=== PATIENT | female | born 1945 | race Caucasian/White ===

== ENCOUNTER 2017-11-19 21:37 | Emergency (ER) | payer MEDICARE, OTHER ==
[~2017-11-19] VITALS: Ht 157.5 cm; Wt 51.7 kg
[~2017-11-19 21:37] MED LIST: ALBU90OI; ALBU90OI INH; ATOR10; AZIT250 PO; BUDESONIDE EC3 MG PO; BUPR75; BUPR75 PO; CETI10 PO; CETI5 PO; CLOB.05TC TOP; CONEST.625; DAIRY DIGES9000 UNI1; ERYT1OIN; ESTR2 PO; Estradiol1 MG PO; FLUSAL2505; FLUSAL2505 IH; FLUSAL2505 INH; GUAI600T33 PO; HYDACE5 PO; IPRAOI; Imuran50 MG PO; LEVFLO500 PO; LEVSOD100; LEVSOD100 PO; LIQUID B-11000 MCG/1 SL; LORA1SY; MESA250ER PO; METF500; METF500 PO; MONT10T; PIOG15 PO; PRED10 PO; PRED20 PO; Prednisone20 MG PO; RANI150; SACC250C PO; SIMV10 PO; SULTRIDS PO; SYNTHROID112 MCG PO; Simvastatin20 MG PO; TIOT18; TIOT18 IH; TOBR.3OPSO OP; TRIA80TC; TUMS300 MG; VALACYCLOVIR500 MG; VICODIN 5-3001 EACH PO; VIROPTIC; Ventolin Soln3 ML; ZYRTEC10 M1 PO; [UNRECOGNIZED DRUG - CODE]
[2017-11-19 22:10] LABS: BASOPHILS ABSOLUTE AUTO 0.02 K/mm3 (0.00-0.23); BASOPHILS PERCENT AUTO 0 % (0-2); EOSINOPHILS ABSOLUTE AUTO 0.05 K/mm3 (0.00-0.68); EOSINOPHILS PERCENT AUTO 1 % (0-6); Hematocrit 37.9 % (33.0-51.0); Hemoglobin 12.6 g/dL (11.5-16.0); IMMATURE GRAN ABSOLUTE AUTO 0.01 K/mm3 (0.00-0.10); IMMATURE GRAN PERCENT AUTO 0 % (0-1); LYMPHOCYTES PERCENT AUTO 24 % (21-46); MONOCYTES ABSOLUTE AUTO 0.59 K/mm3 (0.16-1.47); MONOCYTES PERCENT AUTO 11 % (4-13); Mean Corpuscular HGB 34.5 pg (26.0-34.0); Mean Corpuscular HGB Conc 33.2 g/dL (31.5-36.5); Mean Corpuscular Volume 104 fL (80-100); Mean Platelet Volume 9.5 fL (9.1-12.4); NEUTROPHILS ABSOLUTE AUTO 3.55 K/mm3 (1.96-9.15); NEUTROPHILS PERCENT AUTO 64 % (41-73); Platelet Count 192 K/mm3 (150-400); RDW Standard Deviation 53.8 fL (35.1-46.3); Red Blood Cell Count 3.65 M/mm3 (3.80-5.20); White Blood Cell Count 5.52 K/mm3 (4.00-11.30)
[2017-11-19 22:29] LABS: Alanine Aminotransfer (ALT/SGP 30 U/L (12-78); Albumin, Blood 3.8 g/dL (3.4-5.0); Albumin/Globulin Ratio 1.2 (0.8-1.8); Alk Phos 118 U/L (50-136); Anion Gap 8 mmol/L (6-16); Aspartate Aminotrans (AST/SGOT 23 U/L (12-37); Bilirubin, Total 0.2 mg/dL (0.1-1.0); Blood Urea Nitrogen 7 mg/dL (8-24); Bun/Creatinine Ratio 10.3 (12.0-20.0); CO2, Blood 26 mmol/L (21-32); Chloride, Blood 111 mmol/L (98-108); Creatinine, Blood 0.68 mg/dL (0.40-1.00); Globulin, Blood 3.1 g/dL (2.2-4.0); Glomerular Filtration Rate >60 (60-); Glucose, Blood 123 mg/dL (70-99); Potassium, Blood 3.6 mmol/L (3.5-5.5); Sodium, Blood 145 mmol/L (136-145); Total Protein, Blood 6.9 g/dL (6.4-8.2); Troponin I <0.015 ng/mL (0.000-0.040)
[2017-11-19] MEDS ORDERED: Prednisone20 MG PO (23:24)
[2017-11-19] MEDS ORDERED: ALBU2.5V5 NEB (23:27)
[2017-11-19] MEDS ORDERED: Zithromax250 MG PO (23:39)
== END 2017-11-19 23:56 | disposition home or self-care (01) ==
LOC: ER 21:37
PROVIDERS: Emergency Medicine
DX: J44.1 Chronic obstructive pulmonary disease with (acute) exacerbation (principal); Z88.8 Allergy status to other drugs, medicaments and biological substances; Z79.899 Other long term (current) drug therapy; Z79.84 Long term (current) use of oral hypoglycemic drugs; Z79.2 Long term (current) use of antibiotics; J45.901 Unspecified asthma with (acute) exacerbation; F17.200 Nicotine dependence, unspecified, uncomplicated
CPT/HCPCS: 36415; 71046; 80053; 83880; 84484; 85025; 93005; 93010; 94640; 94644; 96361; 96374; 99283; J2930; J7030

== ENCOUNTER → 2018-01-12 | Outpatient (CLI) | payer MEDICARE, OTHER ==
[~2018-01-12] MED LIST changes: +ALBU2.5V5 NEB; +Zithromax250 MG PO
== END | disposition home or self-care (01) ==
LOC: OLS 05:00 → LAB SHORT 05:00
DX: R05 Cough (principal)
CPT/HCPCS: 87015; 87116; 87206

== ENCOUNTER 2018-11-23 07:45 | Emergency (ER) | payer MEDICARE, OTHER ==
[~2018-11-23] VITALS: Ht 157.5 cm; Wt 51.7 kg
[2018-11-23] MEDS ORDERED: CHOL10002 (08:09)
[2018-11-23] MEDS ORDERED: BUPR150T2 PO (08:09)
[2018-11-23] MEDS ORDERED: PYRI100 (08:09)
[2018-11-23] MEDS ORDERED: CYAN500 (08:10)
[2018-11-23] MEDS ORDERED: Zocor20 MG PO (08:10)
[2018-11-23] MEDS ORDERED: VALA500 PO (08:10)
[2018-11-23] MEDS ORDERED: MONT10T PO (08:11)
[2018-11-23] MEDS ORDERED: LEVO-T100 MCG PO (08:11)
[2018-11-23] MEDS ORDERED: AZAT50 PO (08:11)
[2018-11-23] MEDS ORDERED: METF500 PO (08:11)
[2018-11-23] MEDS ORDERED: ALBU2.5V5 (08:12)
[2018-11-23] MEDS ORDERED: TIOT18 (08:12)
[2018-11-23] MEDS ORDERED: FLUT1DIS5 (08:12)
[2018-11-23] MEDS ORDERED: ALBU90OI6 (08:12)
[2018-11-23 08:32] LABS: BASOPHILS ABSOLUTE AUTO 0.02 K/mm3 (0.00-0.23); BASOPHILS PERCENT AUTO 0 % (0-2); EOSINOPHILS ABSOLUTE AUTO 0.17 K/mm3 (0.00-0.68); EOSINOPHILS PERCENT AUTO 3 % (0-6); Hematocrit 41.2 % (33.0-51.0); Hemoglobin 13.5 g/dL (11.5-16.0); IMMATURE GRAN ABSOLUTE AUTO 0.01 K/mm3 (0.00-0.10); IMMATURE GRAN PERCENT AUTO 0 % (0-1); LYMPHOCYTES ABSOLUTE AUTO 1.66 K/mm3 (0.84-5.20); LYMPHOCYTES PERCENT AUTO 28 % (21-46); MONOCYTES PERCENT AUTO 8 % (4-13); Mean Corpuscular HGB 34.8 pg (26.0-34.0); Mean Corpuscular HGB Conc 32.8 g/dL (31.5-36.5); Mean Corpuscular Volume 106 fL (80-100); Mean Platelet Volume 9.7 fL (9.1-12.4); NEUTROPHILS ABSOLUTE AUTO 3.62 K/mm3 (1.96-9.15); NEUTROPHILS PERCENT AUTO 61 % (41-73); Platelet Count 209 K/mm3 (150-400); RDW Coefficient Variation 14.5 % (11.7-14.2); RDW Standard Deviation 56.7 fL (35.1-46.3); Red Blood Cell Count 3.88 M/mm3 (3.80-5.20); White Blood Cell Count 5.98 K/mm3 (4.00-11.30)
[2018-11-23 08:59] LABS: Alanine Aminotransfer (ALT/SGP 32 U/L (12-78); Albumin, Blood 3.9 g/dL (3.4-5.0); Albumin/Globulin Ratio 1.3 (0.8-1.8); Alk Phos 87 U/L (50-136); Anion Gap 8 mmol/L (6-16); Aspartate Aminotrans (AST/SGOT 26 U/L (12-37); Bilirubin, Total 0.5 mg/dL (0.1-1.0); Blood Urea Nitrogen 9 mg/dL (8-24); Bun/Creatinine Ratio 11.8 (12.0-20.0); CO2, Blood 27 mmol/L (21-32); Calcium, Blood 9.1 mg/dL (8.5-10.1); Chloride, Blood 107 mmol/L (98-108); Creatinine, Blood 0.77 mg/dL (0.40-1.00); Glomerular Filtration Rate >60 (60-); Glucose, Blood 141 mg/dL (70-99); Sodium, Blood 142 mmol/L (136-145); Total Protein, Blood 6.9 g/dL (6.4-8.2); Troponin I <0.015 ng/mL (0.000-0.040)
[2018-11-23] MEDS ORDERED: Prednisone10 MG PO (12:08)
[2018-11-23] MEDS ORDERED: PRED20 PO (12:08)
== END 2018-11-23 12:47 | disposition home or self-care (01) ==
LOC: ER 07:45
PROVIDERS: Emergency Medicine
DX: J44.1 Chronic obstructive pulmonary disease with (acute) exacerbation (principal); Z88.8 Allergy status to other drugs, medicaments and biological substances; Z79.899 Other long term (current) drug therapy; Z79.84 Long term (current) use of oral hypoglycemic drugs; F17.200 Nicotine dependence, unspecified, uncomplicated
CPT/HCPCS: 36415; 71046; 80053; 84484; 85025; 93005; 93010; 94640; 96374; 99285-25; J2930

== ENCOUNTER → 2019-03-21 | Outpatient (CLI) | payer MEDICARE, OTHER ==
[~2019-03-21] MED LIST changes: +ALBU2.5V5; +ALBU90OI6; +AZAT50 PO; +BUPR150T2 PO; +CHOL10002; +CYAN500; +FLUT1DIS5; +LEVO-T100 MCG PO; +MONT10T PO; +ONDA4ODT MM; +PENVK500 PO; +PYRI100; +Percocet 5-3251 EACH PO; +Prednisone10 MG PO; +TYLECOD3 PO; +VALA500 PO; +Zocor20 MG PO
== END | disposition home or self-care (01) ==
LOC: LAB EV 07:45 → LAB SHORT 07:45
DX: J44.1 Chronic obstructive pulmonary disease with (acute) exacerbation (principal)
CPT/HCPCS: 87070; 87205

== ENCOUNTER 2019-05-04 20:04 | Emergency (ER) | payer MEDICARE, OTHER ==
[~2019-05-04] VITALS: Ht 157.5 cm; Wt 54.4 kg
[~2019-05-04 20:04] MED LIST changes: -ONDA4ODT MM; -PENVK500 PO; -Percocet 5-3251 EACH PO; -TYLECOD3 PO
[2019-05-04] MEDS ORDERED: PENVK500 PO (20:52)
[2019-05-04] MEDS ORDERED: TYLECOD3 PO (20:55)
[2019-05-04 21:11] LABS: BASOPHILS ABSOLUTE AUTO 0.04 K/mm3 (0.00-0.23); BASOPHILS PERCENT AUTO 1 % (0-2); EOSINOPHILS ABSOLUTE AUTO 0.15 K/mm3 (0.00-0.68); EOSINOPHILS PERCENT AUTO 2 % (0-6); Hematocrit 40.3 % (33.0-51.0); Hemoglobin 13.4 g/dL (11.5-16.0); IMMATURE GRAN ABSOLUTE AUTO 0.03 K/mm3 (0.00-0.10); IMMATURE GRAN PERCENT AUTO 0 % (0-1); LYMPHOCYTES ABSOLUTE AUTO 1.23 K/mm3 (0.84-5.20); LYMPHOCYTES PERCENT AUTO 18 % (21-46); MONOCYTES ABSOLUTE AUTO 0.68 K/mm3 (0.16-1.47); MONOCYTES PERCENT AUTO 10 % (4-13); Mean Corpuscular HGB Conc 33.3 g/dL (31.5-36.5); Mean Corpuscular Volume 102 fL (80-100); Mean Platelet Volume 9.9 fL (9.1-12.4); NEUTROPHILS ABSOLUTE AUTO 4.72 K/mm3 (1.96-9.15); NEUTROPHILS PERCENT AUTO 69 % (41-73); Platelet Count 265 K/mm3 (150-400); RDW Coefficient Variation 13.2 % (11.7-14.2); RDW Standard Deviation 49.9 fL (35.1-46.3); Red Blood Cell Count 3.94 M/mm3 (3.80-5.20); White Blood Cell Count 6.85 K/mm3 (4.00-11.30)
[2019-05-04 21:30] LABS: Alanine Aminotransfer (ALT/SGP 23 U/L (12-78); Albumin, Blood 3.2 g/dL (3.4-5.0); Albumin/Globulin Ratio 0.9 (0.8-1.8); Alk Phos 89 U/L (50-136); Anion Gap 9 mmol/L (6-16); Aspartate Aminotrans (AST/SGOT 20 U/L (12-37); Bilirubin, Total 0.2 mg/dL (0.1-1.0); Blood Urea Nitrogen 10 mg/dL (8-24); Bun/Creatinine Ratio 13.6 (12.0-20.0); CO2, Blood 27 mmol/L (21-32); Calcium, Blood 8.7 mg/dL (8.5-10.1); Chloride, Blood 103 mmol/L (98-108); Creatinine, Blood 0.73 mg/dL (0.40-1.00); Globulin, Blood 3.5 g/dL (2.2-4.0); Glomerular Filtration Rate >60 (60-); Glucose, Blood 123 mg/dL (70-99); Potassium, Blood 3.8 mmol/L (3.5-5.5); Sodium, Blood 139 mmol/L (136-145); Total Protein, Blood 6.7 g/dL (6.4-8.2); Troponin I <0.015 ng/mL (0.000-0.040)
[2019-05-04] MEDS ORDERED: Percocet 5-3251 EACH PO (22:18)
[2019-05-04] MEDS ORDERED: ONDA4ODT MM (22:19)
== END 2019-05-04 23:01 | disposition home or self-care (01) ==
LOC: ER 20:04
PROVIDERS: Physician Assistant
DX: R51 Headache (principal); Z88.8 Allergy status to other drugs, medicaments and biological substances; Z79.899 Other long term (current) drug therapy; Z79.84 Long term (current) use of oral hypoglycemic drugs; J44.9 Chronic obstructive pulmonary disease, unspecified; F17.200 Nicotine dependence, unspecified, uncomplicated
CPT/HCPCS: 36415; 70450; 71046; 80053; 84484; 85025; 93005; 93010; 96374; 96375; 99284-25; A9270; A9270-GY; J1885; J2405; J3010

== ENCOUNTER 2019-09-08 13:26 | Inpatient (IN) | payer MEDICARE, OTHER ==
[~2019-09-08] VITALS: Ht 157.5 cm; Wt 57.7 kg
[~2019-09-08 13:26] MED LIST changes: -ALBU90OI6; -AZAT50 PO; -BUPR150T2 PO; -CHOL10002; -CYAN500; -FLUT1DIS5; -LEVO-T100 MCG PO; -MONT10T PO; +ONDA4ODT MM; +PENVK500 PO; -PYRI100; +Percocet 5-3251 EACH PO; +TYLECOD3 PO; -VALA500 PO; -Zocor20 MG PO
[2019-09-08 13:55] LABS: Base Excess Venous 1.7 mmol/L; Bicarbonate Venous 25.3 mmol/L (24.0-30.0); PCO2 Venous 43.5 mmHg (38-42); PO2 Venous 55.9 mmHg (38-42); pH Blood Venous 7.39 (7.34-7.37)
[2019-09-08 14:00] LABS: BASOPHILS ABSOLUTE AUTO 0.01 K/mm3 (0.00-0.23); BASOPHILS PERCENT AUTO 0 % (0-2); EOSINOPHILS ABSOLUTE AUTO 0.01 K/mm3 (0.00-0.68); EOSINOPHILS PERCENT AUTO 0 % (0-6); Hematocrit 43.5 % (33.0-51.0); Hemoglobin 14.5 g/dL (11.5-16.0); IMMATURE GRAN ABSOLUTE AUTO 0.07 K/mm3 (0.00-0.10); IMMATURE GRAN PERCENT AUTO 1 % (0-1); LYMPHOCYTES ABSOLUTE AUTO 0.83 K/mm3 (0.84-5.20); LYMPHOCYTES PERCENT AUTO 10 % (21-46); MONOCYTES PERCENT AUTO 7 % (4-13); Mean Corpuscular HGB 34.6 pg (26.0-34.0); Mean Corpuscular HGB Conc 33.3 g/dL (31.5-36.5); Mean Corpuscular Volume 104 fL (80-100); NEUTROPHILS ABSOLUTE AUTO 7.15 K/mm3 (1.96-9.15); NEUTROPHILS PERCENT AUTO 83 % (41-73); Platelet Count 217 K/mm3 (150-400); RDW Coefficient Variation 14.5 % (11.7-14.2); RDW Standard Deviation 55.5 fL (35.1-46.3); Red Blood Cell Count 4.19 M/mm3 (3.80-5.20); White Blood Cell Count 8.67 K/mm3 (4.00-11.30)
[2019-09-08 14:23] LABS: Alanine Aminotransfer (ALT/SGP 34 U/L (12-78); Albumin, Blood 4.1 g/dL (3.4-5.0); Albumin/Globulin Ratio 1.2 (0.8-1.8); Alk Phos 102 U/L (50-136); Anion Gap 8 mmol/L (6-16); Aspartate Aminotrans (AST/SGOT 29 U/L (12-37); Bilirubin, Total 0.4 mg/dL (0.1-1.0); Blood Urea Nitrogen 10 mg/dL (8-24); Bun/Creatinine Ratio 14.8 (12.0-20.0); CO2, Blood 25 mmol/L (21-32); Calcium, Blood 9.2 mg/dL (8.5-10.1); Chloride, Blood 109 mmol/L (98-108); Creatinine, Blood 0.68 mg/dL (0.40-1.00); Globulin, Blood 3.5 g/dL (2.2-4.0); Glomerular Filtration Rate >60 (60-); Glucose, Blood 146 mg/dL (70-99); Potassium, Blood 4.1 mmol/L (3.5-5.5); Sodium, Blood 142 mmol/L (136-145); Total Protein, Blood 7.6 g/dL (6.4-8.2); Troponin I <0.015 ng/mL (0.000-0.040)
[2019-09-08] MEDS ORDERED: Duoneb 2.5-0.5 M3 ML INH (16:20)
[2019-09-08] MEDS ORDERED: AZITHROMYCIN250 MG PO (16:21)
[2019-09-08] MEDS ORDERED: LEVSOD100 PO (16:22)
[2019-09-08] MEDS ORDERED: AZAT50 PO (16:22)
[2019-09-08] MEDS ORDERED: PREDNISONE5 MG PO (16:23)
[2019-09-08] MEDS ORDERED: FLUT1DIS5 INH (16:24)
[2019-09-08] MEDS ORDERED: VALA500 PO (16:24)
[2019-09-08] MEDS ORDERED: BUPROPION XL150 M1 PO (16:25)
[2019-09-08] MEDS ORDERED: POTASSIUM CHLO10 MEQ PO (16:27)
[2019-09-08] MEDS ORDERED: SIMV10 PO (16:27)
[2019-09-08] MEDS ORDERED: ALBU90OI INH (16:29)
[2019-09-08] MEDS ORDERED: METFORMIN HCL500 M2 PO (16:29)
[2019-09-08] MEDS ORDERED: FAMO20 PO (16:31)
[2019-09-08] MEDS ORDERED: TIOT18 INH (18:34)
[2019-09-08] MEDS ORDERED: Vitamin B-650 MG PO (18:36)
[2019-09-08] MEDS ORDERED: VITAMIN D325 MCG PO (18:36)
[2019-09-08] MEDS ORDERED: [UNRECOGNIZED DRUG - CODE] SL (18:38)
[2019-09-08] MEDS ORDERED: MONT10T PO (18:38)
[2019-09-09 01:47] LABS: Adenovirus Not Detected (NOT DETECT); Bordetella pertussis Not Detected (NOT DETECT); Chlamydophila pneumoniae Not Detected (NOT DETECT); Coronavirus 229E Not Detected (NOT DETECT); Coronavirus HKU1 Not Detected (NOT DETECT); Coronavirus NL63 Not Detected (NOT DETECT); Coronavirus OC43 Not Detected (NOT DETECT); Human Metapneumovirus Not Detected (NOT DETECT); Human Rhinovirus/Enterovirus Not Detected (NOT DETECT); Influenza A Not Detected (NOT DETECT); Influenza A/2009-H1 Not Detected (NOT DETECT); Influenza A/H1 Not Detected (NOT DETECT); Influenza A/H3 Not Detected (NOT DETECT); Influenza B Not Detected (NOT DETECT); Mycoplasma pneumoniae Not Detected (NOT DETECT); Parainfluenza Virus 1 Not Detected (NOT DETECT); Parainfluenza Virus 2 Not Detected (NOT DETECT); Parainfluenza Virus 3 Not Detected (NOT DETECT); Parainfluenza Virus 4 Not Detected (NOT DETECT); Respiratory Syncytial Virus Not Detected (NOT DETECT)
[2019-09-09 04:26] LABS: BASOPHILS ABSOLUTE AUTO 0.01 K/mm3 (0.00-0.23); BASOPHILS PERCENT AUTO 0 % (0-2); EOSINOPHILS PERCENT AUTO 0 % (0-6); Hematocrit 41.3 % (33.0-51.0); Hemoglobin 13.7 g/dL (11.5-16.0); IMMATURE GRAN ABSOLUTE AUTO 0.04 K/mm3 (0.00-0.10); IMMATURE GRAN PERCENT AUTO 0 % (0-1); LYMPHOCYTES ABSOLUTE AUTO 0.63 K/mm3 (0.84-5.20); LYMPHOCYTES PERCENT AUTO 6 % (21-46); MONOCYTES ABSOLUTE AUTO 0.23 K/mm3 (0.16-1.47); MONOCYTES PERCENT AUTO 2 % (4-13); Mean Corpuscular HGB 34.1 pg (26.0-34.0); Mean Corpuscular HGB Conc 33.2 g/dL (31.5-36.5); Mean Corpuscular Volume 103 fL (80-100); Mean Platelet Volume 10.2 fL (9.1-12.4); NEUTROPHILS ABSOLUTE AUTO 9.43 K/mm3 (1.96-9.15); NEUTROPHILS PERCENT AUTO 91 % (41-73); Platelet Count 211 K/mm3 (150-400); RDW Coefficient Variation 14.6 % (11.7-14.2); RDW Standard Deviation 55.3 fL (35.1-46.3); Red Blood Cell Count 4.02 M/mm3 (3.80-5.20); White Blood Cell Count 10.34 K/mm3 (4.00-11.30)
[2019-09-09 04:45] LABS: Alanine Aminotransfer (ALT/SGP 34 U/L (12-78); Albumin, Blood 3.7 g/dL (3.4-5.0); Albumin/Globulin Ratio 1.1 (0.8-1.8); Alk Phos 75 U/L (50-136); Anion Gap 5 mmol/L (6-16); Aspartate Aminotrans (AST/SGOT 21 U/L (12-37); Bilirubin, Total 0.6 mg/dL (0.1-1.0); Blood Urea Nitrogen 16 mg/dL (8-24); Bun/Creatinine Ratio 24.7 (12.0-20.0); CO2, Blood 29 mmol/L (21-32); Calcium, Blood 8.9 mg/dL (8.5-10.1); Chloride, Blood 107 mmol/L (98-108); Creatinine, Blood 0.65 mg/dL (0.40-1.00); Globulin, Blood 3.3 g/dL (2.2-4.0); Glomerular Filtration Rate >60 (60-); Glucose, Blood 195 mg/dL (70-99); Potassium, Blood 4.1 mmol/L (3.5-5.5); Sodium, Blood 141 mmol/L (136-145)
--- NOTE | 2019-09-09 06:48 | NUR ---
SHIFT SUMMARY PT ARRIVED FROM ER APPROXIMATELY 2141; A&O; FAMILY AT BEDSIDE; TRANSFERED SELF TO BED; RT AT BEDSIDE FOR BIPAP ADJUSTMENTS; VSS; O2 SATS >93 ON 4L NC; COARSE LUNG SOUNDS W/ WHEEZES NOTED; PT KEPT BIPAP IN PLACE A FEW HOURS AND SLEPT WELL; ATIVAN GIVEN 2X IN SHIFT; PT STATED IT HELPED; REFER TO EMAR; HOT COFFEE BROUGHT TO PT THIS AM; DENIES OTHER NEEDS; CALL LIGHT IN REACH; BED IN LOWEST POSITION; WILL CONTINUE TO MONITOR UNTIL HAND OFF TO DAY SHIFT RN.
--- NOTE | 2019-09-09 08:10 | NUR ---
AM NOTE... ASSUMED CARE OF PT APROX 0700. PT IS A&Ox4 AND SBA IN THE ROOM. PT WAS ON 4L NC WITH BIPAP FOR RESCUE. PT WAS TITRATED DOWN TO 3L AND HAS TOLERATED THIS WELL. PT IS NORMALLY ON RA AT HOME. RR 18-24 EVEN BUT SLIGHTLY LABORED. PT'S VS STABLE AT THIS TIME. SR/ST 90'S-100'S PER CURVE SAW OPERATOR. NO EDEMA IS NOTED ON ASSESSMENT. L/S COARSE W/EXP WHEEZES T/O. BT PRESENT AND HYPOACTIVE ABD IS SOFT AND NONTENDER TO PALP. CALL LIGHT IN REACH WILL CONTINUE TO MONITOR.
--- NOTE | 2019-09-09 09:41 | NUR ---
Met with pt this morning for med pass, pt agreed for nursing professor to work dain piña
--- NOTE | 2019-09-09 18:28 | NUR ---
SHIFT SUMMARY... NO ACUTE NEGATIVE CHANGES NOTED THIS SHIFT. PT HAS BEEN TITRATED FROM 4L NC TO 2L NC WITH O2 SATS AT 91-93%. PT IS SBA IN THE ROOM. PT'S VS HAVE BEEN STABLE T/O SHIFT. PT DENIES ANY CHEST PAIN PRESSURE N/V OR SOB. PT HAS HAD FAMILY AT THE BEDSIDE MOST OF THE SHIFT. PT HAS BEEN UP TO [place] [facility] [place]. CALL LIGHT IN REACH WILL CONTINUE TO MONITOR UNTIL REPORT IS GIVEN TO ONCOMING RN.
--- NOTE | 2019-09-10 06:34 | NUR ---
SHIFT SUMMARY PT A&O; SLEPT SEVERAL HOURS IN THE NIGHT; DENIES CHEST PAIN; VSS; O2 SATS >92 ON 2L NC; WHEN PT AWOKE THIS AM HAD A HARSH COUGHING SPELL; O2 TURNED UP FOR SATURATION; FAN BROUGHT TO PT; PT RECOVERED AFTER SEVERAL MINUTES; RT NOTIFIED OF PT REQUEST OF BREATHING TX. COFFEE BROUGHT TO PT TO SOOTHE; BSC CLOSE TO BEDSIDE; DENIES OTHER NEEDS AT THIS TIME; CALL LIGHT IN REACH; BED IN LOWEST POSITION; WILL CONTINUE TO MONITOR UNTIL HAND OFF TO DAY SHIFT RN.
--- NOTE | 2019-09-10 07:49 | NUR ---
AM NOTE... ASSUMED CARE OF PT APROX 0700. PT IS A&Ox4 AND WAS ADMITTED FOR RESP FAILURE. PT IS CURRENTLY ON 2L NC AND WILL CONTINUE TO TITRATE TO RA ASTOL. PT'S VS STABLE AT THIS TIME. PT DENIES CHEST PAIN OR INCREASED SOB BUT STILL BECOMES DYSPNIC WITH ACTIVITY. L/S EXP WHEEZES HEARD T/O DIM IN THE BASES. NO EDEMA NOTED ON ASSESSMENT. BT PRESENT AND NORMOACTIVE. CALL LIGHT IN REACH, WILL CONTINUE TO MONITOR.
[2019-09-10 09:48] LABS: PCO2 Arterial 36.2 mmHg (35-45); PO2 Arterial 69.7 mmHg (80-100); pH Blood Arterial 7.45 (7.35-7.45)
--- NOTE | 2019-09-10 13:43 | NUR ---
PT TRANSFERED. PT TRANSFERED AT 1300. PT ORIENTED TO ROOM & UNIT BY AIDE. RESPIRATORY CALLED FOR BREATHING TREATMENT. WILL CONTINUE TO MONITOR.
--- NOTE | 2019-09-10 16:44 | NUR ---
SHIFT SUMMARY PT SATING IN THE 90S ON 2L O2 VIA NC. PT TRANSFERING TO BEDSIDE COMMODE INDEPENDENTLY. NO OTHER CHANGES IN ASSESSMENT AT THIS TIME. VSS. WILL CONTINUE TO MONITOR UNTIL TURNOVER IS COMPLETE.
--- NOTE | 2019-09-10 18:36 | NUR ---
HEARTBURN PT C/O HEARTBURN. DR SINGLETON NOTIFIED. HOME PEPCID DOSE ORDERED AND TO START NOW.
[2019-09-11 05:23] LABS: Albumin, Blood 3.3 g/dL (3.4-5.0); Anion Gap 6 mmol/L (6-16); Blood Urea Nitrogen 21 mg/dL (8-24); Bun/Creatinine Ratio 28.2 (12.0-20.0); CO2, Blood 28 mmol/L (21-32); Calcium, Blood 8.5 mg/dL (8.5-10.1); Chloride, Blood 107 mmol/L (98-108); Creatinine, Blood 0.74 mg/dL (0.40-1.00); Glomerular Filtration Rate >60 (60-); Glucose, Blood 240 mg/dL (70-99); Phosphorus, Blood 2.7 mg/dL (2.5-4.9); Sodium, Blood 141 mmol/L (136-145)
--- NOTE | 2019-09-11 06:04 | NUR ---
SHIFT SUMMARY PT VERY ANXIOUS AT SHIFT CHANGE. IMMEDIATELY FOLLOWING EATING DINNER. POSSIBILITY THAT PT ASPIRATED AT DINNER. PT STATES THAT SOMETIMES SHE COUGHS WHILE SHE IS SWALLOWING WHICH CAUSES HER TO SWALLOW INAPPROPRIATELY. PT WAS ON 3 L O2 NC MOST OF THE DAY. AFTER DINNER PT BECAME MORE SOB. PT ALSO HAD A FAMILY MEMBER AT BEDSIDE THAT APPEARED TO BE MAKING THE PT EVEN MORE ANXIOUS. ATIVAN GIVEN BY DAY RN. BREATHING TX GIVEN AND PT PLACED ON BIPAP W/ 5 L BLEEDIN. PT REMAINED ON BIPAP FOR SEVERAL HOURS. EVENTUALLY PT DID FEEL IF SHE NO LONGER NEEDED BIPAP AT THIS TIME. PT THEN PLACED ON 4 L O2 NC AND TITRATED DOWN THROUGHOUT THE NIGHT. CURRENTLY ON 2.5 L WITH O2 SATS IN THE MID 90'S. PT DOES GET VERY SHORT OF BREATH WITH EXERTION BUT MANAGES GETTING TO THE BSC WELL. PLEASANT AND COOPERATIVE THIS EVENING. LUNG SOUNDS COARSE WITH SOME INTERMITTENT WHEEZING. HACKING MOSTLY NON PRODUCTIVE COUGH. TESSALON PEARLS GIVEN X 1. PT SLEPT OFF AND ON THROUGHOUT THE NIGHT. NO COMPLAINTS OF PAIN. VITAL SIGNS STABLE. WILL CONTINUE TO MONITOR.
--- NOTE | 2019-09-11 17:11 | NUR ---
SHIFT SUMMARY PT AXO X4, PLEASANT AND COOPERATIVE WITH CARE. 92% ON 3L VIA NC. PT COMPLAINS OF COUGH AND ANXIETY, MEDICATED PER EMAR. IV PATENT AND SALINE LOCKED. PHYSICAL THERAPY EVALUATED, SEE NOTE. VSS. NO ACUTE CHANGED THIS SHIFT. BED IN LOW POSITION, CALL LIGHT WITHIN REACH. PT UP INDEPENDENTLY TO BSC WHICH IS IMMEDIATELY AT BEDSIDE. PT DENIES PAIN.
--- NOTE | 2019-09-12 04:28 | NUR ---
SHIFT SUMMARY PT HAD UNEVENTFUL NIGHT. SLEPT WELL. LUNG SOUNDS CONTINUE TO BE COARSE THROUGHOUT WITH MINIMAL INTERMITTENT WHEEZING. TITRATED PT'S O2 DOWN TO 2 L NC WITH O2 SATS REMAINING IN THE MID 90'S. MEDICATED X 2 W/ 1 MG PO ATIVAN. PT DENIED ANY PAIN. REPORTED SHE FELT THAT HER BREATHING WAS IMPROVING. VITAL SIGNS STABLE. NO ACUTE CHANGES. WILL CONTINUE TO MONITOR AND REPORT TO DAY RN.
[2019-09-12] MEDS ORDERED: ACET325 PO (11:45)
[2019-09-12] MEDS ORDERED: BENZ100A PO (11:46)
[2019-09-12] MEDS ORDERED: DILT120 PO (11:47)
[2019-09-12] MEDS ORDERED: GUAI600T33 PO (11:48)
[2019-09-12] MEDS ORDERED: Ativan1 MG PO (11:49)
[2019-09-12] MEDS ORDERED: LEVO750 PO (11:49)
[2019-09-12] MEDS ORDERED: Prednisone20 MG PO (11:50)
--- NOTE | 2019-09-12 16:42 | NUR ---
DISCHARGE NOTE PT DISCHARGED TO HOME. PT LEFT ROOM AT 1520 VIA WHEELCHAIR WITH FAMILY PRESENT. IV DC'D AND BELONGINGS RETURNED. PT AND FAMILY EDUCATED ON ALL DISCHARGE INFORMATION. ALL QUESTIONS ANSWERED. PT AGREES TO FOLLOW UP WITH PCP AND [facility] LIFT MECHANIC PER ORDERS. PT DC'D AFTER [facility] DELIVERED O2 TAKE FOR TRANSFER HOME.
== END 2019-09-12 15:19 | disposition home or self-care (01) | DRG 189 ==
LOC: ER 13:26 → MEDS 15:49 → PCU 21:40 → MEDS 09-10 13:01 → ENPENDDIS 09-12 10:36 → MEDS 09-12 15:19
PROVIDERS: Emergency Medicine; Internal Medicine; Nurse Practitioner Acute Care; Physician Assistant; ADMIT Internal Medicine
DX: J96.21 Acute and chronic respiratory failure with hypoxia (principal); J44.1 Chronic obstructive pulmonary disease with (acute) exacerbation; K50.90 Crohn's disease, unspecified, without complications; E11.65 Type 2 diabetes mellitus with hyperglycemia; E03.9 Hypothyroidism, unspecified; E78.5 Hyperlipidemia, unspecified; F41.9 Anxiety disorder, unspecified; G25.0 Essential tremor; R00.0 Tachycardia, unspecified; F17.210 Nicotine dependence, cigarettes, uncomplicated; Z66 Do not resuscitate
CPT/HCPCS: 0099U; 36415; 36600; 71045; 71046; 80053; 80069; 82803; 82947; 84484; 85025; 85379; 93005; 93010; 94640; 94644; 94660; 94664; 94668; 94760; 94761; 94762; 96365; 96375; 96376; 97161; 98960; 99285-25; A9270-GY; J1650; J2060; J2920; J2930; J3475; J7030; J7120; J7500

== ENCOUNTER → 2019-12-15 | Outpatient (CLI) | payer MEDICARE, OTHER ==
[~2019-12-15] MED LIST changes: +ACET325 PO; +AZAT50 PO; +AZITHROMYCIN250 MG PO; +Ativan1 MG PO; +BENZ100A PO; +BUPROPION XL150 M1 PO; +DILT120 PO; +Duoneb 2.5-0.5 M3 ML INH; +FAMO20 PO; +FLUT1DIS5 INH; +LEVO750 PO; +METFORMIN HCL500 M2 PO; +MONT10T PO; +POTASSIUM CHLO10 MEQ PO; +PREDNISONE5 MG PO; +TIOT18 INH; +VALA500 PO; +VITAMIN D325 MCG PO; +Vitamin B-650 MG PO; +[UNRECOGNIZED DRUG - CODE] SL
[2019-12-15 15:37] LABS: Adenovirus F 40/41 Not Detected (NOT DETECT); Astrovirus Not Detected (NOT DETECT); Campylobacter Sp Not Detected (NOT DETECT); Cryptosporidium Not Detected (NOT DETECT); Cyclospora Cayetanensis Not Detected (NOT DETECT); E. Coli O157 Not Detected (NOT DETECT); Entamoeba Histolytica Not Detected (NOT DETECT); Enteroaggregative E. coli-EAEC Not Detected (NOT DETECT); Enteropathogenic E. coli-EPEC Not Detected (NOT DETECT); Enterotoxigenic E. coli-ETEC Not Detected (NOT DETECT); Giardia Lamblia Not Detected (NOT DETECT); Norovirus GI/GII Not Detected (NOT DETECT); Plesiomonas Shigelloides Not Detected (NOT DETECT); Rotavirus A Not Detected (NOT DETECT); Salmonella Sp Not Detected (NOT DETECT); Sapovirus Not Detected (NOT DETECT); Shiga Toxin-prod E. coli-STEC Not Detected (NOT DETECT); Shigella/Enteroin E. coli-EIEC Not Detected (NOT DETECT); Vibrio Cholerae Not Detected (NOT DETECT); Vibrio Sp Not Detected (NOT DETECT); Yersinia Enterocolitica Not Detected (NOT DETECT)
== END | disposition home or self-care (01) ==
LOC: LAB 11:45 → LAB SHORT 11:45 → LAB FUT 07-22 11:15
PROVIDERS: Internal Medicine Gastroenterology
DX: K50.00 Crohn's disease of small intestine without complications (principal); R10.84 Generalized abdominal pain
CPT/HCPCS: 0097U; 87324

== ENCOUNTER 2020-01-04 15:35 | Inpatient (IN) | payer MEDICARE, OTHER ==
[~2020-01-04] VITALS: Ht 157.5 cm; Wt 60.5 kg
[~2020-01-04 15:35] MED LIST changes: +B-121000 MC3 PO; +VITAMIN D31000 UNI1 PO; -VITAMIN D325 MCG PO; -[UNRECOGNIZED DRUG - CODE] SL
[2020-01-04 16:45] LABS: BASOPHILS ABSOLUTE AUTO 0.02 K/mm3 (0.00-0.23); BASOPHILS PERCENT AUTO 0 % (0-2); EOSINOPHILS ABSOLUTE AUTO 0.01 K/mm3 (0.00-0.68); EOSINOPHILS PERCENT AUTO 0 % (0-6); Hematocrit 37.1 % (33.0-51.0); Hemoglobin 12.2 g/dL (11.5-16.0); IMMATURE GRAN ABSOLUTE AUTO 0.02 K/mm3 (0.00-0.10); IMMATURE GRAN PERCENT AUTO 0 % (0-1); LYMPHOCYTES ABSOLUTE AUTO 0.28 K/mm3 (0.84-5.20); LYMPHOCYTES PERCENT AUTO 4 % (21-46); MONOCYTES ABSOLUTE AUTO 0.32 K/mm3 (0.16-1.47); MONOCYTES PERCENT AUTO 5 % (4-13); Mean Corpuscular HGB 33.3 pg (26.0-34.0); Mean Corpuscular HGB Conc 32.9 g/dL (31.5-36.5); Mean Corpuscular Volume 101 fL (80-100); Mean Platelet Volume 10.2 fL (9.1-12.4); NEUTROPHILS ABSOLUTE AUTO 6.34 K/mm3 (1.96-9.15); NEUTROPHILS PERCENT AUTO 91 % (41-73); Platelet Count 199 K/mm3 (150-400); RDW Coefficient Variation 13.3 % (11.7-14.2); RDW Standard Deviation 49.8 fL (35.1-46.3); Red Blood Cell Count 3.66 M/mm3 (3.80-5.20); White Blood Cell Count 6.99 K/mm3 (4.00-11.30)
[2020-01-04 17:18] LABS: Alanine Aminotransfer (ALT/SGP 56 U/L (12-78); Albumin, Blood 3.9 g/dL (3.4-5.0); Albumin/Globulin Ratio 1.3 (0.8-1.8); Alk Phos 75 U/L (50-136); Anion Gap 9 mmol/L (6-16); Aspartate Aminotrans (AST/SGOT 53 U/L (12-37); Bilirubin, Total 0.4 mg/dL (0.1-1.0); Blood Urea Nitrogen 9 mg/dL (8-24); CO2, Blood 23 mmol/L (21-32); Calcium, Blood 8.8 mg/dL (8.5-10.1); Chloride, Blood 108 mmol/L (98-108); Creatinine, Blood 0.82 mg/dL (0.40-1.00); Glomerular Filtration Rate >60 (60-); Glucose, Blood 225 mg/dL (70-99); Sodium, Blood 140 mmol/L (136-145); Total Protein, Blood 6.9 g/dL (6.4-8.2)
[2020-01-04 17:19] LABS: Troponin I 0.201 ng/mL (0.000-0.040)
[2020-01-04] MEDS ORDERED: Klor-Con 1010 MEQ PO (18:31)
[2020-01-04] MEDS ORDERED: IPRAT-ALBUT 0.5-3 ML INH ×2 (18:32→20:14)
[2020-01-04] MEDS ORDERED: ENTYVIO300 MG PO (18:40)
[2020-01-04] MEDS ORDERED: Ativan1 MG PO (20:37)
--- NOTE | 2020-01-04 21:00 | NUR ---
PT ADMITTED TO PCU 1 FROM ER AT 1999. PT W LABORED BREATHING & REQUESTING BREATHING TX. PT IS ALERT, PLEASANT & ABLE TO COMMUNICATE NEEDS. O2 SATS WERE 99%, AND O2 TITRATED TO 2L NC, RT NOTIFIED FOR UDN. PT ORIENTED TO ROOM & CALL LIGHT AVAIL. ADMIT HX COMPLETED BY CLINICAL EDUCATION SPECIALIST.
--- NOTE | 2020-01-05 01:30 | NUR ---
PT BREATHING IMPROVED, BUT CONT LABORED & W I/E WHEEZES TO. PT WAS PLACED ON BIPAP. MED W ATIVAN 0.5MG, AND PT IS POSITIONED IN HIGH FOWLERS POSITION OF COMFORT. ABLE TO BE UP TO BSC TO VOID W SBA. SECOND IV STARTED LFA, RAC POSITIONAL FOR CONT INF. TELE SHOWS ST, RATE ~100, BP 160'S/80'S. PT CONT PLEASANT, ALERT AND ABLE TO COMMUNICATE NEEDS. CONT TO MONITOR.
[2020-01-05 04:02] LABS: BASOPHILS ABSOLUTE AUTO 0.01 K/mm3 (0.00-0.23); BASOPHILS PERCENT AUTO 0 % (0-2); EOSINOPHILS PERCENT AUTO 0 % (0-6); Hematocrit 38.1 % (33.0-51.0); Hemoglobin 12.5 g/dL (11.5-16.0); IMMATURE GRAN ABSOLUTE AUTO 0.03 K/mm3 (0.00-0.10); IMMATURE GRAN PERCENT AUTO 0 % (0-1); LYMPHOCYTES ABSOLUTE AUTO 0.28 K/mm3 (0.84-5.20); LYMPHOCYTES PERCENT AUTO 4 % (21-46); MONOCYTES ABSOLUTE AUTO 0.07 K/mm3 (0.16-1.47); MONOCYTES PERCENT AUTO 1 % (4-13); Mean Corpuscular HGB 33.2 pg (26.0-34.0); Mean Corpuscular HGB Conc 32.8 g/dL (31.5-36.5); Mean Corpuscular Volume 101 fL (80-100); Mean Platelet Volume 9.9 fL (9.1-12.4); NEUTROPHILS ABSOLUTE AUTO 6.61 K/mm3 (1.96-9.15); NEUTROPHILS PERCENT AUTO 95 % (41-73); Platelet Count 191 K/mm3 (150-400); RDW Coefficient Variation 13.4 % (11.7-14.2); RDW Standard Deviation 50.4 fL (35.1-46.3); Red Blood Cell Count 3.77 M/mm3 (3.80-5.20)
[2020-01-05 04:25] LABS: Alanine Aminotransfer (ALT/SGP 57 U/L (12-78); Albumin, Blood 3.6 g/dL (3.4-5.0); Albumin/Globulin Ratio 1.2 (0.8-1.8); Alk Phos 69 U/L (50-136); Anion Gap 2 mmol/L (6-16); Aspartate Aminotrans (AST/SGOT 51 U/L (12-37); Bilirubin, Total 0.6 mg/dL (0.1-1.0); Blood Urea Nitrogen 10 mg/dL (8-24); Bun/Creatinine Ratio 15.1 (12.0-20.0); CO2, Blood 28 mmol/L (21-32); Calcium, Blood 8.1 mg/dL (8.5-10.1); Chloride, Blood 113 mmol/L (98-108); Creatinine, Blood 0.66 mg/dL (0.40-1.00); Globulin, Blood 3.1 g/dL (2.2-4.0); Glomerular Filtration Rate >60 (60-); Glucose, Blood 194 mg/dL (70-99); Magnesium, Blood 2.8 mg/dL (1.6-2.4); Potassium, Blood 4.1 mmol/L (3.5-5.5); Sodium, Blood 143 mmol/L (136-145); Total Protein, Blood 6.7 g/dL (6.4-8.2); Troponin I 0.181 ng/mL (0.000-0.040)
--- NOTE | 2020-01-05 06:09 | NUR ---
PT STATES SHE WAS ABLE TO REST, AND FEELS SHE IS BREATHING SO MUCH BETTER. CONT TO HAVE I/E WHEEZES. CONT W CPAP IN PLACE & 2L BLEED IN.
--- NOTE | 2020-01-05 07:40 | NUR ---
ASSUMED CARE AT 0700. SITTING UP AT SIDE OF BED GETTING BREATHING TREATMENT. L/S WHEEZY THROUGHOUT. A/A/OX4. PLAN OF CARE REVIEWED FOR DAY. VSS, WILL CONTINUE TO MONITOR.
--- NOTE | 2020-01-05 17:45 | NUR ---
SHIFT SUMMARY; A/A/0X4 DURING SHIFT. LABORED BREATHING IN AM WITH WHEEZING, GRADUALLY IMPROVED THROUGHOUT DAY. SITTING AT BEDSIDE SPEAKING FULL SENTENCES AT THIS TIME. O2 VIA NC 2L. BED BATH AND ORAL CARE TODAY DURING SHIFT. DIET INCREASED TO REGULAR DIET PER ORDERS, TOLERATED WELL. WILL CONTINUE TO MONITOR UNTIL CHANGE OF SHIFT.
--- NOTE | 2020-01-05 19:00 | NUR ---
REPORT AND BEDSIDE ROUNDING WITH APOLINAR MOORE. ASSUMED PT CARE. PT PLEASANT WITH INTRODUCITONS. PT ABLE TO GET UP INDEPENDENTLY TO BSC. O2 IN PLACE. CALL LIGHT/REMOTE IN REACH.
--- NOTE | 2020-01-05 19:30 | NUR ---
ASSESSMENT CHARTED. VSS. PT ASKING FOR "NERVE MEDICATION" TONIGHT. PT REQUESTING BREATHING TREATMENT. THIS RN TO SPEAK WITH RESP THERAPIST.
--- NOTE | 2020-01-05 20:35 | NUR ---
PT MEDICATED WITH SCHEDULED MEDS PER EMAR. PT ALSO MEDICATED WITH 0.5MG IV ATIVAN. CALL LIGHT/REMOTE IN REACH. PT STATES BREATHING TREATMENT HELPED.
--- NOTE | 2020-01-05 22:00 | NUR ---
PT RESTING IN POSITION OF COMFORT. WILL CONTINUE TO MONITOR.
--- NOTE | 2020-01-05 23:40 | NUR ---
VSS. PT SLEEPING IN POSITION OF COMFORT. CPAP IN PLACE.
--- NOTE | 2020-01-06 00:04 | NUR ---
PT MEDICATED WITH SOLUMEDROL PER EMAR.
--- NOTE | 2020-01-06 03:45 | NUR ---
VSS. BLOOD DRAWN FOR BRICK SHADER. PT SITTING UP ON SIDE OF BED. ON 3L PER NC. CPAP TURNED OFF PER PT REQUEST. PT ASKING TO SHOWER. WILL GET HER SET UP.
[2020-01-06 03:55] LABS: Bicarbonate Venous 27.3 mmol/L (24.0-30.0); PCO2 Venous 42.3 mmHg (38-42); PO2 Venous 76.9 mmHg (38-42); pH Blood Venous 7.43 (7.34-7.37)
[2020-01-06 03:56] LABS: Base Excess Venous 3.7 mmol/L
[2020-01-06 04:11] LABS: BASOPHILS ABSOLUTE AUTO 0.01 K/mm3 (0.00-0.23); BASOPHILS PERCENT AUTO 0 % (0-2); EOSINOPHILS PERCENT AUTO 0 % (0-6); Hematocrit 40.7 % (33.0-51.0); Hemoglobin 13.3 g/dL (11.5-16.0); IMMATURE GRAN ABSOLUTE AUTO 0.04 K/mm3 (0.00-0.10); IMMATURE GRAN PERCENT AUTO 0 % (0-1); LYMPHOCYTES ABSOLUTE AUTO 0.41 K/mm3 (0.84-5.20); LYMPHOCYTES PERCENT AUTO 4 % (21-46); MONOCYTES ABSOLUTE AUTO 0.47 K/mm3 (0.16-1.47); MONOCYTES PERCENT AUTO 4 % (4-13); Mean Corpuscular HGB 33.1 pg (26.0-34.0); Mean Corpuscular HGB Conc 32.7 g/dL (31.5-36.5); Mean Corpuscular Volume 101 fL (80-100); Mean Platelet Volume 10.4 fL (9.1-12.4); NEUTROPHILS ABSOLUTE AUTO 10.51 K/mm3 (1.96-9.15); NEUTROPHILS PERCENT AUTO 92 % (41-73); Platelet Count 219 K/mm3 (150-400); RDW Coefficient Variation 13.3 % (11.7-14.2); RDW Standard Deviation 49.6 fL (35.1-46.3); Red Blood Cell Count 4.02 M/mm3 (3.80-5.20); White Blood Cell Count 11.44 K/mm3 (4.00-11.30)
[2020-01-06 04:29] LABS: Anion Gap 6 mmol/L (6-16); Blood Urea Nitrogen 14 mg/dL (8-24); Bun/Creatinine Ratio 19.6 (12.0-20.0); CO2, Blood 28 mmol/L (21-32); Calcium, Blood 8.6 mg/dL (8.5-10.1); Chloride, Blood 109 mmol/L (98-108); Creatinine, Blood 0.71 mg/dL (0.40-1.00); Glomerular Filtration Rate >60 (60-); Glucose, Blood 197 mg/dL (70-99); Potassium, Blood 4.3 mmol/L (3.5-5.5); Sodium, Blood 143 mmol/L (136-145)
--- NOTE | 2020-01-06 05:32 | NUR ---
PT MEDICATED WITH SHEDULED SYNTHROID AND SOLUMEDROL PER EMAR. PT SITTING UP BRUSHING TEETH.
--- NOTE | 2020-01-06 05:49 | NUR ---
SHIFT SUMMARY PT HAD UNEVENTFUL EVENING. ALERT AND ORIENTED THROUGHOUT SHIFT. VSS. PT WORE CPAP W/O ISSUE. PT ABLE TO GET UP TO BSC AND BACK TO BED INDEPENDENTLY. PT DENIES PAIN. PT HAD 1 DOSE OF ATIVAN LAST PM FOR ANXIETY AND INCREASED WORK OF BREATHING. PT CURRENTLY ON 3L NC. PT GAVE HERSELF A BED BATH. STATES WORK OF BREATHING IMPROVED THIS AM. WILL DISCUSS WITH DAY SHIFT RN POSSIBILITY OF STATUS CHANGE. WILL CONTINUE TO MONITOR AND REPORT TO ONCOMING SHIFT.
--- NOTE | 2020-01-06 07:47 | NUR ---
ASSUMED CARE AT 0700, REPORT FROM OSCAR OLSON. SITTING AT SIDE OF BED GETTING BREATHING TX. SPEAKING FULL SENTENCES, MINIMAL USE OF ACCESSORY MUSCLES FOR BREATHING. WHEEZY T/O. A/A/OX4, PLAN OF CARE REVIEWED WITH PT. WILL CONTINUE TO MONITOR.
--- NOTE | 2020-01-06 13:05 | NUR ---
IN HOUSE TRANSFER TO MEDICAL FLOOR, REPORT GIVEN TO RN.
--- NOTE | 2020-01-06 14:51 | NUR ---
TRANSFER SUMMARY PT TRANSFERED FROM PCU 1 TO [facility]. OSCAR SEPULVEDA PROVIDED HANDOFF INFORMATION. PT TOILETS INDEPENDENTLY AND FREQUENTLY DUE TO CROHN'S DISEASE. PT ALERT AND ORIENTED X4 AT TIMES OF XFER. IV'S PRESENT IN RAC AND LFA. PT WAS VERY ANXIOUS WITH SOB AT TIME OF TRANSFER. O2 WAS SWITCHED OVER IMMEDIATELY AND A BREATHING TREATMENT WAS ADMINISTERED. 1MG ATIVAN WAS GIVEN JUST BEFORE SHE WAS TRANSFERRED. PT WAS STILL ANXIOUS AND SOB AFTER BREATHING TREATMENT. RT RETURNED AND PLACED HER ON BIPAP. SHE REPORTS FEELING RELIEVED AND BREATHING EASY AT THIS TIME.
--- NOTE | 2020-01-06 17:02 | NUR ---
STUDENT ASSESSMENT I AGREE WITH THE STUDENTS ASSESSMENT AND DOCUMENTATION FOR THIS AFTERNOON.
--- NOTE | 2020-01-06 17:05 | NUR ---
SHIFT SUMMARY PT WAS TRANSFERRED TO [facility] FROM [facility] THIS AFTERNOON. PT HAS BEEN ANXIOUS AND SOB SINCE TRANSFER. BREATHING TREATMENT ADMINISTERED AND BIPAP IN PLACE FOR ABOUT 2 HOURS. PT IS OFF BIPAP NOW AND BACK ON 3L O2 VIA NC. PT IS STILL SOMEWHAT ANXIOUS, BUT IS NOW RESTING IN BED. PT HAS TOILETED INDEPENDENTLY THROUGHOUT SHIFT. PT HAS ESSENTIAL TREMORS AT BASELINE, BUT IS SAFE TO AMBULATE ON HER OWN.
--- NOTE | 2020-01-06 21:41 | NUR ---
PER PCU TECH,PT HAS INCREASES PAC'S AND PVC'S AND IS GOING FROM 120'S TO 190'S ON TELE
--- NOTE | 2020-01-07 03:20 | NUR ---
ASSUMPTION OF CARE: AT APPROX 2240 PATIENT ARRIVED TO [facility] VIA BED FROM MEDICAL FLOOR, REPORT RECIEVED FROM PRIMARY RN. PATIENT ON BIPAP WITH LABORED BREATHING, TREMORS, TRIPOD POSITION. (SEE EMAR FOR MEDICATIONS GIVEN) PROCESS MOLD TECHNICIAN MESFIN ON UNIT DIRECTING CARE OF PATIENT, HR AVERAGING 160 WITH OCCASSIONAL INCREASE IN RATE TO 190 WITH ANY EXERTION. CARDIZEM DRIP STARTED, EKG OBTAINED WITH INDIDCATION OF AFLUTTER. APPROX 0221 PATIENT CONVERTED TO SINUS RHYTHUM WITH A HR MAINTAINING IN THE 80'S, CARDIZEM RATE TURNED DOWN FROM THE INITIAL 15MG/HR TO 10MG/HR. PATIENTS HR INCREASED TO THE 90'S BUT MAINTAINING. STAFF CAREFULLY MONITORING PATIENTS HR AND RHYTHUM, PATIENT NOW APPEARING COMFORTABLE AND SLEEPING.
--- NOTE | 2020-01-07 05:40 | NUR ---
SHIFT SUMMARY: SEE PREVIOUS NOTE FOR RHYTHUM CONVERSION. PATIENT TAKING OFF MASK MULTIPLE TIMES THIS SHIFT D/T VERY DEEP SLEEP, PATIENT EASILY AROUSED BUT DIFFICULT TO REDIRECT POST 1MG ATIVAN. PATIENT MAINTAINING HR OF 80 ON 10MG/HR OF CARDIZEM, WILL TITRATE TO 5MG. ALL OTHER VSS, CALL LIGHT WITHIN REACH, BED LOW AND LOCKED WITH EXIT ALARM ON.
[2020-01-07 06:09] LABS: BASOPHILS PERCENT AUTO 0 % (0-2); EOSINOPHILS PERCENT AUTO 0 % (0-6); Hematocrit 39.6 % (33.0-51.0); Hemoglobin 12.7 g/dL (11.5-16.0); IMMATURE GRAN ABSOLUTE AUTO 0.07 K/mm3 (0.00-0.10); IMMATURE GRAN PERCENT AUTO 1 % (0-1); LYMPHOCYTES ABSOLUTE AUTO 0.23 K/mm3 (0.84-5.20); LYMPHOCYTES PERCENT AUTO 2 % (21-46); MONOCYTES ABSOLUTE AUTO 0.24 K/mm3 (0.16-1.47); MONOCYTES PERCENT AUTO 2 % (4-13); Mean Corpuscular HGB 32.5 pg (26.0-34.0); Mean Corpuscular HGB Conc 32.1 g/dL (31.5-36.5); Mean Corpuscular Volume 101 fL (80-100); Mean Platelet Volume 10.7 fL (9.1-12.4); NEUTROPHILS ABSOLUTE AUTO 10.21 K/mm3 (1.96-9.15); NEUTROPHILS PERCENT AUTO 95 % (41-73); Platelet Count 204 K/mm3 (150-400); RDW Coefficient Variation 13.2 % (11.7-14.2); RDW Standard Deviation 49.1 fL (35.1-46.3); Red Blood Cell Count 3.91 M/mm3 (3.80-5.20); White Blood Cell Count 10.75 K/mm3 (4.00-11.30)
--- NOTE | 2020-01-07 08:00 | NUR ---
PT LAYING IN BED, AWAKE A/OX3, PLEASANT AND COOPERATIVE WITH CARE, FOLLOWS COMMANDS WELL, DENIES PAIN, JUST SOB, BIPAP IN PLACE, PLACED HER ON 3 LITERS VIA N/C, RESP EVEN, MILDLY LABORED, COURSE NONPRODUCTIVE OCC COUGH, LUNGS HAVE INSP/EXP WHEEZING T/O, COURSE, HRR, LRUNNING SR SINCE 0200 PER MONITOR, SEE STRIP, NO EDEMA NOTED, PPP+1, CAP REFILL <3SEC, VS STABLE, AFEBRILE, IV SITES ARE CLEAR AND PATENT, BTX4, ABD FLAT SOFT NONTENDER, VOIDS VIA BSC, SKIN C/W/D, SAGAR RAMOS, CALL LIGHT IN REACH.
--- NOTE | 2020-01-07 12:38 | NUR ---
pt sitting up on the side of the bed for lunch, she is able to transfer herself to the bsc, she is very aware of her medications, no further changes this shift. call light in reach.
--- NOTE | 2020-01-07 14:25 | NUR ---
pt having a bit of anxiety, gave her a xanex and placed her on bipap. call light in reach. Dr. Bob in to see her, new orders noted, pulminary will see her.
[2020-01-07 16:41] LABS: Free Thyroxine 1.16 ng/dL (0.70-1.60)
[2020-01-07 16:43] LABS: Triiodothyronine, Free 1.77 pg/mL (2.18-3.98)
--- NOTE | 2020-01-07 18:00 | NUR ---
PT SITTING UP ON THE SIDE OF THE BED EATING DINNER, GETS HERSELF UP TO BSC INDEP. SHE DOES HAVE AUDIBLE WHEEZING. SHE WAS GIVEN A XANAX EARLIER FOR ANXIETY, DID REALLY WELL WITH THAT. DR. LEVIN WAS IN TO SEE HER, ORDERED MORPHINE, BUT TOLD HIM JUST GAVE XANAX, HE SAID TO GIVE AT 1600, SPOKE WITH HER AT THAT TIME, WAS NOT SURE ABOUT IT, SAID SHE HAS NEVER HAD IT, WANTS TO WAIT BECAUSE SHE'S FEELING OK AT THAT TIME. WILL GIVE IF NEED ARRISES. CALL LIGHT IN REACH.
--- NOTE | 2020-01-07 21:00 | NUR ---
UPDATE APPROXIMATELY 1950 PT ANXIOUS AND INCREASED SOB; 1X DOSE OF 1 MG MORPHINE ADMINISTERED; PT TOLERATED WELL STATED LATER IT HELPED; DR. POONAM BREEN NOTIFIED REQUESTED AND NEW ORDER GIVEN FOR 1MG MORPHINE IV Q2 PRN; WLL CONTINUE TO MONITOR CLOSELY.
--- NOTE | 2020-01-08 02:50 | NUR ---
UPDATE PATIENT'S HEART RATE AFIB IN THE 180'S-190'S PER EMERGENCY DEPARTMENT RN. DR ODELL NOTIFIED. ORDERS RECEIVED. VITALS CHARTED. HR CURERNTLY AFIB IN THE 140'S AFTER FIRST DOSE OF IV LOPRESSOR.
--- NOTE | 2020-01-08 06:00 | NUR ---
SHIFT SUMMARY PT A&O; VERY ANXIOUS; COMPLIANT W/ CARE; HR STABLE; 1X DOSE OF LOPRESSOR GIVEN PER ORDERS; VSS; O2 SATS >93 ON 2L NC; TITRATED PER RT; BIPAP USED A FEW HOURS; PT STATES MORPHINE HELPS; PT SLEPT VERY LITTLE, SAT UP AT SIDE OF BED ON AND OFF MOST OF NIGHT; CALL LIGHT IN REACH; BED IN LOWEST POSITION; WILL CONTINUE TO MONITOR CLOSELY UNTIL HAND OFF TO DAY SHIFT RN.
--- NOTE | 2020-01-08 09:30 | NUR ---
ARRIVAL TO ICU 5 Pt arrived to ICU 5 at 0907. Transferred to ICU per orders from Dr Yuan for increased monitoring with BiPAP; restraints and precedex if necessary. Pt accompanied by PCT Chantelle, RT Torrie, and RN Brittany. Pt arrived on BiPAP. Pt agitated on arrival, repeatedly pulling off mask. Pt not answering questions. Pt not following commands. Pt repeatedly states "I need air and I can't breathe". Lungs have inspiratory and expiratory wheezes in all james. Bilateral wrist restraints placed to maintain mask in place as pt keeps pulling it off. Precedex to be started. Plan of care discussed with Dr Yuan. Plan to increase IV steroids. Plan to obtain COVID specimen for r/o.
--- NOTE | 2020-01-08 09:42 | NUR ---
TRANSFER NOTE PT HAVING INCREASED RESP EFFORT AFTER PULLING OFF O2 VIA NC OFF AND DESATURATING SPO2 IN THE 60'S PER RT. PLACED M-SERIES AND TRANSITIONED TO V60. BIPAP 14/7 AT 30% FIO2; PT TIDAL VOL 300-1000; RESP 24-32, RT AT BEDSIDE. PT ALERT AND ORIENTED TO SELF AND SURROUNDING; CONFUSED AND PULLING OFF BIPAP REPEATEDLY, DR PORTER TO BEDSIDE, NEW ORDERS TO TRANSFER TO ICU. PT LS EXP/INS WHEEZES T/O; ACCESSORY MUSCLE USE; GASPING WITH BIPAP IN PLACE AND TRIPOD BREATHING. ELEVATED BP NOTED, HR 90-110'S NSR - ST PER EXPLORATION ENGINEER. PT TRANSFERED TO ICU AT APPOX 0920. BEDSIDE REPORT GIVEN TO RN ASSUMING CARE.
--- NOTE | 2020-01-08 12:30 | NUR ---
FAMILY AT BEDSIDE Pt's daughter in to see pt, with permission from Dr Yuan. Plan of care discussed with daughter by this RN and by Dr Yuan. Pt remains on BiPAP at this time. Precedex on standby.
--- NOTE | 2020-01-08 15:16 | NUR ---
PLAN OF CARE DISCUSSED WITH DR LEVIN Provider states he would like for pt to have a Abrams catheter. Discussed that pt has not had labs today and last chem was 2 days ago. No new orders at this time.
[2020-01-08 15:24] LABS: Source, Urine Catheter
[2020-01-08 15:48] LABS: Appearance, Urine Clear (Clear); Color, Urine Yellow (P-Yellow); Leukocyte Esterase, Urine Neg (Neg); Nitrite, Urine Neg (Neg)
[2020-01-08 15:49] LABS: Glucose Qualitative, Urine 4+ (Neg); Ketones, Urine 1+ (Neg); Protein, Urine Trace (Neg); Urobilinogen, Urine NORM (Normal)
[2020-01-08 15:50] LABS: Bilirubin, Urine Neg (Neg); Blood, Urine 2+ (Neg)
[2020-01-08 15:52] LABS: White Blood Cells, Urine 0-2 /hpf (0-5)
[2020-01-08 15:53] LABS: Squamous Epithelial Cells Rare /hpf (Few)
[2020-01-08 15:54] LABS: Bacteria Few /hpf
--- NOTE | 2020-01-08 17:27 | NUR ---
SUMMARY At this time, pt is responsive to verbal stimulus. Currently receiving 0.4 mcg/kg/hr precedex for BiPAP tolerance. On awakening, pt immediately attempts to pull BiPAP mask off face. Even if pt does not successfully remove mask, pt immediately desaturates when moving in bed and pulling on restraints. During these episodes, pt desaturates into 60s and 70s and requires IV morphine and/or ativan to calm pt enough for SpO2 to recover. On ausculation, pt's lungs have inspiratory and expiratory wheezes in all james. Minimal coughing noted. HR sinus rhythm with rate 70s-90s. Abrams catheter placed for strict measurement of urine output. No BM this shift. Will continue to closely monitor until care handoff and bedside report with oncoming RN.
--- NOTE | 2020-01-08 19:00 | NUR ---
ASSUMED CARE NOTE: ASSUMED CARE OF PT AT 1900, RECEVIED REPORT FROM MARLENA MOORE. PT IS RESPONDING TO PAINFUL STIMULI, UNABLE TO FOLLOW COMMANDS. SHE IS CURRENTLY ON 0.4MCG/KG/HR OF PRECEDEX. PT ON BIPAP WITH SETTINGS @ 16/5, FiO2 OF 35%, SPO2 @ 95% PT IS HAVING INSPRIATORY STRIDOR, RACEPINEPHRINE BY RT AT BEDSIDE. PT IS HAVING INTERCOSTAL RETRACTIONS. PT'S RR IS BETWEEN 20-25 BREATHS PER MIN. PT IS IN SINUS RHYTHM WITH HR IN THE 80'S. VSS. ABDOMEN TENDER WITH PALPATION. HYPOACTIVE BOWEL TONES IN ALL FOUR QUADRANTS. TUCKER DRAINING TO GRAVITY, CLEAR YELLOW URINE. WILL CONTINUE TO MONITOR PT T/O SHIFT. BED AT LOWEST LEVEL, BILAT SWR IN PLACE.
--- NOTE | 2020-01-08 23:12 | NUR ---
UPDATE: ATTEMPTED TO REPOSITION PT. PT BECAME AGITATED AND BEGAN TO SIT UP IN BED. THRASHING HEAD BACK AND FOURTH. PRECEDEX TURNED UP TO 0.7MCG/KG/HR. PT FIGHTING RESTRAINTS AND PULLING OFF BIPAP MASK. PT DESATURATED TO 60%, HR ELEVATED TO 110 BPM. RR IN THE 40'S. FiO2 TURNED UP TO 100%, RT CALLED TO BED SIDE. PT GIVEN 1MG OF ATIVAN. PT USING ALL ACCESSORY MUSCULES. PT RECOVERED AFTER 10 MINUTES. BIPAP SETTINGS AT 16/5, FiO2 DOWN TO 40% SPO2 READING 96% PRECEDEX AT 0.4MCG/KG/HR. BILAT SWR IN PLACE.
--- NOTE | 2020-01-09 06:32 | NUR ---
SHIFT SUMMARY: NO SIGNIFICANT CHANGES TO PT'S STATUS. PT CONTINUES TO BE ON BIPAP SETTINGS 16/5. FiO2 OF 45% , SPO2 OF 97% PT IN SR WITH HR IN THE 80'S. AT TIMES DURING SHIFT PT WOULD BECOME AGITATED AND SIT UP IN BED ATTEMPTING TO GET SIT UP IN BED A REMOVE BIPAP MASK. PT WILL THEN DESATURATE INTO THE 60% SHE THEN RECOVERS AFTER 10 MINTUES. PT CONTINUES TO REQUIRE ATIVAN PRN FOR AGITATION AND MORPHINE PRN FOR AIR HUNGER. INSPRIATOPY AND EXPRIATORY WHEEZING HEARD T/O ALL LUNG ALVARADO. PT RR BETWEEN 20-25 BPM. VSS, AFEBRILE. PRECEDEX CONTINUES TO BE AT 0.4MCG/KG/HR. 400ML OUTPUT OF CHITRA URINE NOTED VIA TUCKER. WILL CONTINUE TO MONITOR PT UNTIL REPORT IS GIVEN TO ONCOMING SHIFT.
--- NOTE | 2020-01-09 07:15 | NUR ---
BEGINNING OF SHIFT Assumed care at 0700. Bedside report received from Jo MOORE. Pt responsive to painful stimulus. Precedex at 0.4 mcg/kg/hr. Sinus rhtyhm per monitor, HR in 80s. BP stable. Lungs have inspiratory and expiratory wheezes in all james, with diminished bases. BiPAP 16/5 and 45% FiO2. SpO2 98%. Pt is tachypneic, rate 20-24. Tidal volumes 375-425. Breathing labored with accessory muscle use noted. Tracheal, intercostal and substernal retractions present. Plan to medicate with ativan and/or morphine. Abrams catheter in place draining clear, yellow urine.
--- NOTE | 2020-01-09 09:19 | NUR ---
DR POLK IN TO SEE PATIENT Orders given to stop blood sugar checks.
--- NOTE | 2020-01-09 10:00 | NUR ---
UPDATE Dr Morales spoke to family. States plan for transition to comfort care when family gets here after 2 pm.
--- NOTE | 2020-01-09 13:06 | NUR ---
MIKEY ESTEVEZ, AT BEDSIDE Update given. Questions answered to satisfaction.
--- NOTE | 2020-01-09 14:45 | NUR ---
CARE WITHDRAWAL Family and Dr Yuan at bedside. Decision made by family to withdraw care. Pt comfort care. Palliative care RN, Sade, notified.
--- NOTE | 2020-01-09 16:49 | NUR ---
SUMMARY At this time, pt is comfort care due to respiratory failure. Pt taken off BiPAP at 1440. Ativan and morphine for comfort. RR 20-22. Subtle retractions noted. Per this RNs assessment and family's advice, pt is comfortable. Report given to Shamika MOORE, who is to assume care.
--- NOTE | 2020-01-09 18:40 | NUR ---
TRANSFER NOTE- PT TRANSFERED TO MEDICAL FLOOR JUST AFTER BEING SWITCHED TO COMFORT CARE. PT CAME WITH THREE FAMILY MEMBERS AT THE BEDSIDE, HER DAUGHTER AND HER TWO GRANDDAUGHTERS. SPOKE TO THE FAMILY, THEY ARE VERY SHELL SHOCKED IN PRESENTATION. THE PT DAUGHTER EXPLAINED THAT SHE LIVED WITH HER MOTHER (PT) WITH HER THREE CHILDREN. THEY REQUESTED THAT THEY BE ALLOWED A 4TH FAMILY MEMBER. CALLER NURSING DRYWALL CONTRACTOR AND RECIEVED APPROVAL FOR 4 VISITORS AND NO MORE. FAMILY IS AWARE AND VERY GREATFUL FOR THE ALLOWANCE IN THEIR TIME OF GRIEF. PT FACE WASHED WITH A WARM CLOTH, FEET LOTIONED AND MOUTH MOISTURIZED UPON ARRIVAL. COMFORT CARE CART REQUESTED FOR THE FAMILY. THE DAUGHTER LOTIONED THE PT HANDS WELL. THE PT APPEARS TO BE RESTING COMFORTABLY WITH REGULAR GASPING BREATHS. PT FAMILY WILL REQUEST MEDICATION WHEN THEY BELIEVE IT IS NEEDED. OFFERED SPIRITUAL CARE AND THE FAMILY RESPECTFULLY DECLINED. THE OVERALL FEEL OF THE ROOM IS GENERAL SADNESS, BUT THE FAMILY NO LONGER SEEMS ANGRY OR IRRITABLE AND THEY ARE GREATFUL FOR ALL CARE PROVIDED. WILL PASS ON IN REPORT TO NIGHT RN. PT IS A Q2 TURN FAMILY STATED SHE WAS POSITIONED AT 1700.
--- NOTE | 2020-01-09 19:31 | NUR ---
COMFORT CARE 4 FAMILY MEMBERS @BEDSIDE, THEY REPOSITIONED PT ON RT SIDE. MEDICATED W/10MG ROXANOL FOR AIR HUNGER. ON 4L O2. HAS RETRACTIONS. NONVERBAL, DOES NOT OPEN EYES OR MAKE ANY VERBAL NOISES. CALL LIGHT IN REACH & FAMILY MEMBERS AT BEDSIDE.
--- NOTE | 2020-01-10 06:43 | NUR ---
SHIFT SUMMARY ON COMFORT CARE. NONVERBAL & NONRESPONSIVE. HAS LABORED, GASPING BREATHING W/RETRACTIONS. MEDICATED W/ROXANOL & IV ATIVAN MULTIPLE TIMES PER FAMILIES REQUEST. 3-4 FAMILY MEMBERS @BEDSIDE T/O NIGHT. 1X THERE WAS 5 FAMILY MEMBERS & CHARGE NURSE JEAN ALEXANDER TALKED W/FAMILY. FAMILY HAS BEEN PROVIDING ORAL CARE, WASHING FACE, APPLYING LOTION & REPOSITIONING PRN & REFUSES STAFF TO DO THESE TASKS. CALL LIGHT IN REACH.
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
--- NOTE | 2020-01-10 10:26 | NUR ---
PRN ROXANOL AND ATIVAN GIVEN PER FAMILY REQUEST. PT APPEARS COMFORTABLE AT MY ASSESSMENT. MEDS GIVEN PER REQUEST.
--- NOTE | 2020-01-10 10:47 | NUR ---
PT PASSED AT 1028, CONFIRMED BY CARLINE MOORE. FAMILY AT BEDSIDE. FAILY REQUESTS [facility] AND NO DISASTER RECOVERY CONSULTANT REQUESTED.
--- NOTE | 2020-01-10 12:48 | NUR ---
IV X3 DC'D, GARRETT ZACARIAS'D. GRANDSON AT BEDSIDE AND WANTED TO STAY WITH PT UNTIL MORTUARY ARRIVES. MORTUARY NOTIFIED AND AWAITING ARRIVAL.
--- NOTE | 2020-01-10 14:04 | NUR ---
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
== END 2020-01-10 10:28 | DRG 917 ==
LOC: ER 15:35 → PCU 19:16 → MEDS 01-06 12:54 → PCU 01-06 22:26 → ICUE 01-08 08:46 → MEDS 01-09 17:12
PROVIDERS: Emergency Medicine; Internal Medicine; Internal Medicine Critical Care Medicine; Nurse Practitioner Acute Care; ADMIT Internal Medicine
DX: T65.6X1A Toxic effect of paints and dyes, not elsewhere classified, accidental (unintentional), initial encounter (principal); J96.21 Acute and chronic respiratory failure with hypoxia; I21.A1 Myocardial infarction type 2; J44.1 Chronic obstructive pulmonary disease with (acute) exacerbation; E44.0 Moderate protein-calorie malnutrition; K50.90 Crohn's disease, unspecified, without complications; R64 Cachexia; I48.92 Unspecified atrial flutter; Z51.5 Encounter for palliative care; E11.9 Type 2 diabetes mellitus without complications; Z79.4 Long term (current) use of insulin; I10 Essential (primary) hypertension; E03.9 Hypothyroidism, unspecified; E78.5 Hyperlipidemia, unspecified; Z87.891 Personal history of nicotine dependence; F41.9 Anxiety disorder, unspecified; Z66 Do not resuscitate; Z68.24 Body mass index [BMI] 24.0-24.9, adult; D89.89 Other specified disorders involving the immune mechanism, not elsewhere classified; B00.9 Herpesviral infection, unspecified; Z20.828 Contact with and (suspected) exposure to other viral communicable diseases
CPT/HCPCS: 36415; 51702; 71045; 80048; 80053; 81001; 82803; 82947; 83735; 84145; 84439; 84443; 84481; 84484; 85025; 93005; 93010; 93306; 94640; 94644; 94645; 94660; 94762; 96361; 96365; 96367; 99285-25; A9270; A9270-GY; J1650; J2060; J2270; J2930; J3475; J7030; J7050; J7500; J7512; U0002